=== PATIENT | male | born 1945 | race Caucasian/White ===

== ENCOUNTER 2018-12-17 20:57 | Observation (INO) ==
[2018-12-17] MEDS ORDERED: 0.9 % Sodium Chloride 1,000 ML IVC ONE (21:34)
--- NOTE | 2018-12-17 21:50 | Emergency Department Note ---
Disposition Clinical Impression: Alcohol use Syncope Qualifiers: Syncope type: unspecified Qualified Code(s): R55 - Syncope and collapse Hypothermia Qualifiers: Encounter type: initial encounter Qualified Code(s): T68.XXXA - Hypothermia, initial encounter Disposition: Admitted As Inpatient Condition: Fair Referrals: NONE,PCP [Primary Care Provider] - Forms: ED Satisfaction Letter Time of Disposition: 00:49 General Adult HPI - General Chief complaint: ED Nausea/Vomiting/Diarrhea Stated complaint: Vomiting Time Seen by Provider: 12/17/18 21:08 Source: EMS Limitations: no limitations Nursing Notes Reviewed: Yes Vital Signs Reviewed: Yes - History of Present Illness HPI Narrative: 73-year-old male presents from home with family bedside for evaluation of vomiting. Patient felt perfectly fine yesterday and this morning. He went out and drank alcohol, unknown quantity. He came home and sat down. states he went ashen, eyes rolled back of his head, and he passed out briefly. When he came to there was no post ictal period and he vomited 1, nonbloody, nonbilious. also notes he had a lesion excised from the right ma by dermatology which was subsequently found to be a type of skin cancer PMH: Hypertension, hyperlipidemia. No history of CAD, ACS, diabetes, thyroid disease. No preceding illness. Habits: THC smoking. Current everyday EtOH; 3 beers per day. He has never been without EtOH thus has never experienced withdrawl symptoms. ROS: Positive: As above Negative: Trauma, fever, chills, nausea, chest pain, palpitations, dyspnea, diaphoresis, abdominal pain, diarrhea, constipation, Pain Scale: 0 - Related Data Home Medications Medication Instructions Recorded Confirmed Baclofen [Lioresal] 10 mg PO BID 08/17/16 02/08/17 Ciclopirox Olamine [Ciclopirox] 1 appl TP BID 08/17/16 02/08/17 Desonide [Desowen] 1 appl TP BID 08/17/16 02/08/17 Gabapentin [Neurontin] 800 mg PO HS 08/17/16 02/08/17 Losartan Potassium [Cozaar] 50 mg PO DAILY 08/17/16 02/08/17 Meloxicam 15 mg PO DAILY 08/17/16 02/08/17 Pantoprazole Sodium [Protonix] 40 mg PO DAILY 08/17/16 02/08/17 Simvastatin [Zocor] 40 mg PO HS 08/17/16 02/08/17 Triamcinolone Acet 0.1% OINT 1 appl TP BID 08/17/16 02/08/17 [Kenalog] Previous Rx's Medication Instructions Recorded HYDROcodone/Acet 5/325 mg [[place] 1 tab PO Q4H PRN #15 tab 02/08/17 5-325 mg] Phenazopyridine HCl [Pyridium] 200 mg PO TIDAC PRN #30 tab 02/08/17 predniSONE [PredniSONE] 80 mg PO DAILY #28 tablet 11/12/17 Allergies Allergy/AdvReac Type Severity Reaction Status Date / Time No Known Allergies Allergy Verified 11/12/17 19:59 All systems ED: reviewed and negative except as stated. Review of Systems: As Per HPI Past Medical History - Past Medical History Medical history: Reports: GERD, hyperlipidemia, hypertension Psychiatric history: Reports: no psych history - Social History Smoking Status: Never smoker Smokeless Tobacco Status: No Alcohol use: Reports: heavy Drug use: Reports: marijuana Physical Exam Vital Signs Reviewed General: Patient is alert, oriented, and in no acute distress. Head: atraumatic, normocephalic Eye: normal appearance, PERRL, EOMI, no scleral icterus, no conjunctival injection ENT: mucous membranes moist, normal external ear exam Neck: normal inspection, trachea midline, full ROM Chest: normal inspection, symmetric chest rise Respiratory: Good respiratory effort. Bilateral breath sounds are clear without wheezing, crackles, or rhonchi. Cardiovascular: Regular rate and rhythm. No clicks, rubs, gallops, or murmors. Normal heart sounds. Abdomen: Bowel sounds present normoactive. Abdomen is soft, nondistended, and nontender. No guarding or rebound. No organomegaly noted. Musculoskeletal: Spontaneously moving all extremities. Skin: warm, dry. Shallow lesion on right anterior ma which is well-appearing with no erythema, saline as, purulence. Neuro: GCS 15. No focal neurologic deficits observed. Psych: Patient's affect is appropriate for situation. - General Limitations: no limitations General appearance: alert Course Course Narrative: Patient is hypothermic on intake with both oral and rectal temperatures. Concern for possible infectious etiology. Also concern given his syncope which could have been vagal mediated given his emesis. EKG dated 12/17/2018 at 21:20 interpreted as sinus rhythm with rate of 61. [place] 175, QRS 136, QTC 473. Normal axis. Right bundle branch block. Nonspecific ST-T changes. Compared to previous EKG dated 02/10/2017 showing no acute ischemic changes or comparison. CT head unremarkable per cardiology read. Chest x-ray is unremarkable per radiology read. Serum hematology is unremarkable. Serum chemistries unremarkable. EtOH elevated at 150s. Patient's hypothermia improved after 3 hours under the per hugger; he is now 97.5F oral. I discussed the above the patient and family. My clinical concern is his syncope as well as his hypothermia. I do not have an expiration for either at this time. Patient and family are agreeable to admission for continued evaluation and monitoring. I discussed the above with the admitting hospitalist, Dr. Fu. He agrees to accept the patient for syncope workup. We also discussed the patient's hypothermia. Chest X-Ray 12/17/18 21:33 IMPRESSION: No acute cardiopulmonary process. D/ / Jesús Perry / Jesús Perry Interpreting Provider: Jesús Sessions Head CT 12/17/18 21:33 IMPRESSION: No acute intracranial abnormality. D/ / Jose Hernandez MD / Jose Hernandez MD Interpreting Provider: Jose Hernandez MD Vital Signs Temperature 94.5 F L 12/17/18 21:02 Pulse Rate 60 12/17/18 21:02 Respiratory Rate 15 12/17/18 21:02 Blood Pressure 121/68 12/17/18 21:02 O2 Sat by Pulse Oximetry 100 12/17/18 21:02 Temperature 97.8 F 12/18/18 00:25 Pulse Rate 73 12/18/18 00:25 Respiratory Rate 11 12/18/18 00:25 Blood Pressure 129/65 12/18/18 00:25 O2 Sat by Pulse Oximetry 96 12/18/18 00:25 Oxygen Delivery Oxygen Delivery Room Air Medical Decision Making - Lab Data Result diagrams: 12/17/18 21:59 12/17/18 21:59 Lab Results 0312/17/18 12/17/18 Range/Units 21:38 21:59 21:59 WBC 6.6 (4.3-11.1) K/mcL RBC 4.73 (4.19-5.50) M/mcL Hgb 13.9 (12.9-16.9) g/dL Hct 42.2 (37.5-50.1) % MCV 89.2 (83.0-100.0) fL MCH 29.4 (28.0-33.3) pg MCHC 32.9 (31.6-35.5) g/dL RDW 12.7 (11.5-14.5) % Plt Count 179 (140-400) K/mcL MPV 10.6 (9.4-12.4) fL Immature Gran % 0.3 (0-4) % Seg Neutrophils % 69.5 % Lymphocytes % 19.4 % Monocytes % 7.6 % Eosinophils % 2.7 % Basophils % 0.5 % Neutrophils # 4.6 (1.6-8.9) K/mcL Lymphocytes # 1.3 (0.6-4.6) K/mcL Monocytes # 0.5 (0.0-1.3) K/mcL Eosinophils # 0.2 (0.0-0.6) K/mcL Basophils # 0.0 (0.0-0.2) K/mcL PT 10.4 (9.4-12.1) Seconds INR 0.9 APTT 24.3 L (26.0-36.0) Seconds Sodium (136-145) mEq/L Potassium (3.5-5.1) mEq/L Chloride (98-107) mEq/L Carbon Dioxide (23-29) mEq/L BUN (8-23) mg/dL Creatinine (0.70-1.30) mg/dL Est GFR ( Amer) (> 60) Est GFR (Non-Af Amer) (> 60) BUN/Creatinine Ratio (6-26) Glucose (70-105) mg/dL POC Glucose 132 H (70-99) mg/dL Calculated Osmolality (280-300) Lactic Acid (0.5-2.2) mmol/L Calcium (8.6-10.3) mg/dL Magnesium (1.6-2.6) mg/dL Total Bilirubin (0.3-1.0) mg/dL Direct Bilirubin (0.0-0.2) mg/dL Indirect Bilirubin (0.0-1.2) mg/dL AST (13-39) Units/L ALT (7-52) Units/L Alkaline Phosphatase (34-104) Units/L Troponin I (< 0.04) ng/mL Serum Total Protein (6.4-8.9) g/dL Albumin (3.5-5.7) g/dL Globulin (2.4-3.5) g/dL Albumin/Globulin Ratio (1.1-2.2) Salicylates (15.0-30.0) mg/dL Acetaminophen (10-20) mcg/mL Ethyl Alcohol (Less than 10) mg/dL 12/17/18 12/17/18 12/17/18 Range/Units 21:59 21:59 22:09 WBC (4.3-11.1) K/mcL RBC (4.19-5.50) M/mcL Hgb (12.9-16.9) g/dL Hct (37.5-50.1) % MCV (83.0-100.0) fL MCH (28.0-33.3) pg MCHC (31.6-35.5) g/dL RDW (11.5-14.5) % Plt Count (140-400) K/mcL MPV (9.4-12.4) fL Immature Gran % (0-4) % Seg Neutrophils % % Lymphocytes % % Monocytes % % Eosinophils % % Basophils % % Neutrophils # (1.6-8.9) K/mcL Lymphocytes # (0.6-4.6) K/mcL Monocytes # (0.0-1.3) K/mcL Eosinophils # (0.0-0.6) K/mcL Basophils # (0.0-0.2) K/mcL PT (9.4-12.1) Seconds INR APTT (26.0-36.0) Seconds Sodium 139 (136-145) mEq/L Potassium 4.0 (3.5-5.1) mEq/L Chloride 106 (98-107) mEq/L Carbon Dioxide 25 (23-29) mEq/L BUN 13 (8-23) mg/dL Creatinine 1.07 (0.70-1.30) mg/dL Est GFR ( Amer) > 60 (> 60) Est GFR (Non-Af Amer) > 60 (> 60) BUN/Creatinine Ratio 12 (6-26) Glucose 155 H (70-105) mg/dL POC Glucose (70-99) mg/dL Calculated Osmolality 291 (280-300) Lactic Acid 2.5 H (0.5-2.2) mmol/L Calcium 9.3 (8.6-10.3) mg/dL Magnesium 2.3 (1.6-2.6) mg/dL Total Bilirubin 0.6 (0.3-1.0) mg/dL Direct Bilirubin 0.1 (0.0-0.2) mg/dL Indirect Bilirubin 0.5 (0.0-1.2) mg/dL AST 15 (13-39) Units/L ALT 15 (7-52) Units/L Alkaline Phosphatase 64 (34-104) Units/L Troponin I < 0.03 (< 0.04) ng/mL Serum Total Protein 6.9 (6.4-8.9) g/dL Albumin 4.5 (3.5-5.7) g/dL Globulin 2.4 (2.4-3.5) g/dL Albumin/Globulin Ratio 1.9 (1.1-2.2) Salicylates < 2.5 L (15.0-30.0) mg/dL Acetaminophen < 10 L (10-20) mcg/mL Ethyl Alcohol 153 H (Less than 10) mg/dL
[2018-12-17 22:17] LABS: Basophils % 0.5 %; Eosinophils # 0.2 K/mcL (0.0-0.6); Eosinophils % 2.7 %; Hematocrit 42.2 % (37.5-50.1); Hemoglobin 13.9 g/dL (12.9-16.9); Immature Granulocytes % 0.3 % (0-4); Lymphocytes # 1.3 K/mcL (0.6-4.6); Lymphocytes % 19.4 %; Mean Corpuscular HGB Conc 32.9 g/dL (31.6-35.5); Mean Corpuscular Hemoglobin 29.4 pg (28.0-33.3); Mean Corpuscular Volume 89.2 fL (83.0-100.0); Mean Platelet Volume 10.6 fL (9.4-12.4); Monocytes # 0.5 K/mcL (0.0-1.3); Monocytes % 7.6 %; Neutrophils # 4.6 K/mcL (1.6-8.9); Platelet Count 179 K/mcL (140-400); Red Blood Count 4.73 M/mcL (4.19-5.50); Red Cell Distribution Width 12.7 % (11.5-14.5); Segmented Neutrophils % 69.5 %
[2018-12-17 22:32] LABS: Acetaminophen < 10 mcg/mL (10-20); Ethanol 153 mg/dL (Less than 10); Salicylate < 2.5 mg/dL (15.0-30.0)
[2018-12-17 22:35] LABS: Alanine Aminotransferase 15 Units/L (7-52); Albumin 4.5 g/dL (3.5-5.7); Albumin/Globulin Ratio 1.9 (1.1-2.2); Alkaline Phosphatase 64 Units/L (34-104); Aspartate Amino Transferase 15 Units/L (13-39); BUN/Creatinine Ratio 12 (6-26); Bilirubin,Direct 0.1 mg/dL (0.0-0.2); Bilirubin,Indirect 0.5 mg/dL (0.0-1.2); Bilirubin,Total 0.6 mg/dL (0.3-1.0); Blood Urea Nitrogen 13 mg/dL (8-23); Calcium 9.3 mg/dL (8.6-10.3); Carbon Dioxide 25 mEq/L (23-29); Chloride 106 mEq/L (98-107); Globulin 2.4 g/dL (2.4-3.5); Glucose 155 mg/dL (70-105); Magnesium 2.3 mg/dL (1.6-2.6); Osmolality,Calculated 291 (280-300); Sodium 139 mEq/L (136-145); Total Protein 6.9 g/dL (6.4-8.9); Troponin I < 0.03 ng/mL (< 0.04); eGFR For Non-African Americans > 60 (> 60)
[2018-12-17 22:39] LABS: INR 0.9; Prothrombin Time 10.4 Seconds (9.4-12.1)
--- NOTE | 2018-12-17 22:44 | Emergency Department Note ---
Disposition Clinical Impression: Alcohol use Syncope Qualifiers: Syncope type: unspecified Qualified Code(s): R55 - Syncope and collapse Hypothermia Qualifiers: Encounter type: initial encounter Qualified Code(s): T68.XXXA - Hypothermia, initial encounter Disposition: Admitted As Inpatient Condition: Fair Referrals: NONE,PCP [Primary Care Provider] - Forms: ED Satisfaction Letter General Adult HPI - General Chief complaint: ED Nausea/Vomiting/Diarrhea Stated complaint: Vomiting Time Seen by Provider: 12/17/18 21:08 Source: EMS Limitations: no limitations Nursing Notes Reviewed: Yes Vital Signs Reviewed: Yes - History of Present Illness Pain Scale: 0 - Related Data Home Medications Medication Instructions Recorded Confirmed Baclofen [Lioresal] 10 mg PO BID 08/17/16 02/08/17 Ciclopirox Olamine [Ciclopirox] 1 appl TP BID 08/17/16 02/08/17 Desonide [Desowen] 1 appl TP BID 08/17/16 02/08/17 Gabapentin [Neurontin] 800 mg PO HS 08/17/16 02/08/17 Losartan Potassium [Cozaar] 50 mg PO DAILY 08/17/16 02/08/17 Meloxicam 15 mg PO DAILY 08/17/16 02/08/17 Pantoprazole Sodium [Protonix] 40 mg PO DAILY 08/17/16 02/08/17 Simvastatin [Zocor] 40 mg PO HS 08/17/16 02/08/17 Triamcinolone Acet 0.1% OINT 1 appl TP BID 08/17/16 02/08/17 [Kenalog] Previous Rx's Medication Instructions Recorded HYDROcodone/Acet 5/325 mg [[place] 1 tab PO Q4H PRN #15 tab 02/08/17 5-325 mg] Phenazopyridine HCl [Pyridium] 200 mg PO TIDAC PRN #30 tab 02/08/17 predniSONE [PredniSONE] 80 mg PO DAILY #28 tablet 11/12/17 Allergies Allergy/AdvReac Type Severity Reaction Status Date / Time No Known Allergies Allergy Verified 11/12/17 19:59 Past Medical History - Past Medical History Medical history: Reports: GERD, hyperlipidemia, hypertension Psychiatric history: Reports: no psych history - Social History Smoking Status: Never smoker Smokeless Tobacco Status: No Alcohol use: Reports: heavy Drug use: Reports: marijuana Physical Exam - General Limitations: no limitations General appearance: alert Course Vital Signs Temperature 94.5 F L 12/17/18 21:02 Pulse Rate 60 12/17/18 21:02 Respiratory Rate 15 12/17/18 21:02 Blood Pressure 121/68 12/17/18 21:02 O2 Sat by Pulse Oximetry 100 12/17/18 21:02 Temperature 97.8 F 12/18/18 00:25 Pulse Rate 73 12/18/18 00:25 Respiratory Rate 11 12/18/18 00:25 Blood Pressure 129/65 12/18/18 00:25 O2 Sat by Pulse Oximetry 96 12/18/18 00:25 Oxygen Delivery Oxygen Delivery Room Air Medical Decision Making - Medical Records Medical records reviewed: Yes I reviewed the patient's medical records. - Lab Data Lab results reviewed: Yes I reviewed the patient's lab results. Result diagrams: 12/17/18 21:59 12/17/18 21:59 Lab Results 12/17/18 12/17/18 12/17/18 Range/Units 21:38 21:59 21:59 WBC 6.6 (4.3-11.1) K/mcL RBC 4.73 (4.19-5.50) M/mcL Hgb 13.9 (12.9-16.9) g/dL Hct 42.2 (37.5-50.1) % MCV 89.2 (83.0-100.0) fL MCH 29.4 (28.0-33.3) pg MCHC 32.9 (31.6-35.5) g/dL RDW 12.7 (11.5-14.5) % Plt Count 179 (140-400) K/mcL MPV 10.6 (9.4-12.4) fL Immature Gran % 0.3 (0-4) % Seg Neutrophils % 69.5 % Lymphocytes % 19.4 % Monocytes % 7.6 % Eosinophils % 2.7 % Basophils % 0.5 % Neutrophils # 4.6 (1.6-8.9) K/mcL Lymphocytes # 1.3 (0.6-4.6) K/mcL Monocytes # 0.5 (0.0-1.3) K/mcL Eosinophils # 0.2 (0.0-0.6) K/mcL Basophils # 0.0 (0.0-0.2) K/mcL PT 10.4 (9.4-12.1) Seconds INR 0.9 APTT 24.3 L (26.0-36.0) Seconds Sodium (136-145) mEq/L Potassium (3.5-5.1) mEq/L Chloride (98-107) mEq/L Carbon Dioxide (23-29) mEq/L BUN (8-23) mg/dL Creatinine (0.70-1.30) mg/dL Est GFR ( Amer) (> 60) Est GFR (Non-Af Amer) (> 60) BUN/Creatinine Ratio (6-26) Glucose (70-105) mg/dL POC Glucose 132 H (70-99) mg/dL Calculated Osmolality (280-300) Lactic Acid (0.5-2.2) mmol/L Calcium (8.6-10.3) mg/dL Magnesium (1.6-2.6) mg/dL Total Bilirubin (0.3-1.0) mg/dL Direct Bilirubin (0.0-0.2) mg/dL Indirect Bilirubin (0.0-1.2) mg/dL AST (13-39) Units/L ALT (7-52) Units/L Alkaline Phosphatase (34-104) Units/L Troponin I (< 0.04) ng/mL Serum Total Protein (6.4-8.9) g/dL Albumin (3.5-5.7) g/dL Globulin (2.4-3.5) g/dL Albumin/Globulin Ratio (1.1-2.2) Salicylates (15.0-30.0) mg/dL Acetaminophen (10-20) mcg/mL Ethyl Alcohol (Less than 10) mg/dL 12/17/18 12/17/18 12/17/18 Range/Units 21:59 21:59 22:09 WBC (4.3-11.1) K/mcL RBC (4.19-5.50) M/mcL Hgb (12.9-16.9) g/dL Hct (37.5-50.1) % MCV (83.0-100.0) fL MCH (28.0-33.3) pg MCHC (31.6-35.5) g/dL RDW (11.5-14.5) % Plt Count (140-400) K/mcL MPV (9.4-12.4) fL Immature Gran % (0-4) % Seg Neutrophils % % Lymphocytes % % Monocytes % % Eosinophils % % Basophils % % Neutrophils # (1.6-8.9) K/mcL Lymphocytes # (0.6-4.6) K/mcL Monocytes # (0.0-1.3) K/mcL Eosinophils # (0.0-0.6) K/mcL Basophils # (0.0-0.2) K/mcL PT (9.4-12.1) Seconds INR APTT (26.0-36.0) Seconds Sodium 139 (136-145) mEq/L Potassium 4.0 (3.5-5.1) mEq/L Chloride 106 (98-107) mEq/L Carbon Dioxide 25 (23-29) mEq/L BUN 13 (8-23) mg/dL Creatinine 1.07 (0.70-1.30) mg/dL Est GFR ( Amer) > 60 (> 60) Est GFR (Non-Af Amer) > 60 (> 60) BUN/Creatinine Ratio 12 (6-26) Glucose 155 H (70-105) mg/dL POC Glucose (70-99) mg/dL Calculated Osmolality 291 (280-300) Lactic Acid 2.5 H (0.5-2.2) mmol/L Calcium 9.3 (8.6-10.3) mg/dL Magnesium 2.3 (1.6-2.6) mg/dL Total Bilirubin 0.6 (0.3-1.0) mg/dL Direct Bilirubin 0.1 (0.0-0.2) mg/dL Indirect Bilirubin 0.5 (0.0-1.2) mg/dL AST 15 (13-39) Units/L ALT 15 (7-52) Units/L Alkaline Phosphatase 64 (34-104) Units/L Troponin I < 0.03 (< 0.04) ng/mL Serum Total Protein 6.9 (6.4-8.9) g/dL Albumin 4.5 (3.5-5.7) g/dL Globulin 2.4 (2.4-3.5) g/dL Albumin/Globulin Ratio 1.9 (1.1-2.2) Salicylates < 2.5 L (15.0-30.0) mg/dL Acetaminophen < 10 L (10-20) mcg/mL Ethyl Alcohol 153 H (Less than 10) mg/dL - Radiology Data Radiology results reviewed: Yes I reviewed the patient's radiology results. Chest X-Ray 12/17/18 21:33 IMPRESSION: No acute cardiopulmonary process. D/ / Jesús Sessions / Jesús Sessions Interpreting Provider: Jesús Sessions Head CT 12/17/18 21:33 IMPRESSION: No acute intracranial abnormality. D/ / Jose Hernandez MD / Jose Hernandez MD Interpreting Provider: Jose Hernandez MD - EKG Data EKG #1 EKG attestation: Yes I reviewed and interpreted this EKG. EKG results narrative: EKG shows normal sinus rhythm with ventricular rate of 61. Right bundle branch block. No significant ST segment elevation or depression. No ectopy. Attestation Statement - Attestation Attestation: I, Mohit Stallworth MD, personally evaluated this patient and discussed their management with the resident physician. I reviewed the resident's note and agree with the documented findings, medical decision making, and plan of care. 73-year-old male presents to the emergency department with a complaint that he drank some alcohol this evening. Family reports then he became very pale and ashen. He vomited and then passed out. He did not get diaphoretic. He did have some mild twitching and jerking briefly. When he woke up after passing out there was no postictal symptoms. Here in the emergency Department patient has no complaints. He denies any pain anywhere. He denies shortness of breath. He denies nausea. Patient was noted to be hypothermic with a rectal temperature of 94.5. The emergency department. On examination patient is a well-developed well-nourished elderly male in no acute distress. He is alert and oriented 3. There is no cyanosis or diaphoresis. Breath sounds are clear and equal bilaterally. Heart regular rate and rhythm. Abdomen soft and nontender with normal bowel sounds. No pedal edema. Labs reviewed. Chest x-ray negative. Head CT negative. EKG shows normal sinus rhythm with ventricular rate of 61. Right bundle branch block. No significant ST segment elevation or depression. No ectopy. The hospitalist, Dr. Albright, was consulted and accepted admission of the patient.
[2018-12-17 23:36] LABS: Activated Partial Thrombo Time 24.3 Seconds (26.0-36.0)
[2018-12-18] MEDS ORDERED: Naloxone 0.4 MG/ML INJ IVP PRN (02:43)
[2018-12-18] MEDS ORDERED: Cyanocobalamin (B-12) 1,000 MCG/ML VIAL IM SCH (02:45)
[2018-12-18] MEDS ORDERED: DESONIDE APPL TP PRN (02:45)
[2018-12-18] MEDS ORDERED: Clotrimazole 1% CRM 15 GM TUBE TP PRN (02:45)
[2018-12-18 04:25] LABS: Basophils % 0.5 %; Eosinophils % 0.7 %; Hematocrit 37.8 % (37.5-50.1); Hemoglobin 12.5 g/dL (12.9-16.9); Immature Granulocytes % 0.3 % (0-4); Lymphocytes # 1.2 K/mcL (0.6-4.6); Lymphocytes % 19.3 %; Mean Corpuscular HGB Conc 33.1 g/dL (31.6-35.5); Mean Corpuscular Hemoglobin 29.5 pg (28.0-33.3); Mean Corpuscular Volume 89.2 fL (83.0-100.0); Mean Platelet Volume 11.6 fL (9.4-12.4); Monocytes # 0.3 K/mcL (0.0-1.3); Monocytes % 5.4 %; Neutrophils # 4.4 K/mcL (1.6-8.9); Platelet Count 155 K/mcL (140-400); Red Blood Count 4.24 M/mcL (4.19-5.50); Red Cell Distribution Width 12.8 % (11.5-14.5); Segmented Neutrophils % 73.8 %
[2018-12-18 04:30] LABS: Prothrombin Time 11.6 Seconds (9.4-12.1)
[2018-12-18 04:33] LABS: Activated Partial Thrombo Time 24.8 Seconds (26.0-36.0)
[2018-12-18 04:41] LABS: Alanine Aminotransferase 12 Units/L (7-52); Albumin 3.8 g/dL (3.5-5.7); Albumin/Globulin Ratio 1.7 (1.1-2.2); Alkaline Phosphatase 57 Units/L (34-104); Aspartate Amino Transferase 12 Units/L (13-39); BUN/Creatinine Ratio 14 (6-26); Bilirubin,Total 0.5 mg/dL (0.3-1.0); Blood Urea Nitrogen 12 mg/dL (8-23); Calcium 8.8 mg/dL (8.6-10.3); Carbon Dioxide 24 mEq/L (23-29); Chloride 108 mEq/L (98-107); Globulin 2.2 g/dL (2.4-3.5); Glucose 107 mg/dL (70-105); Osmolality,Calculated 292 (280-300); Sodium 141 mEq/L (136-145); Troponin I < 0.03 ng/mL (< 0.04); eGFR For Non-African Americans > 60 (> 60)
--- NOTE | 2018-12-18 06:07 | Internal Med History&Physical ---
Date of Encounter: 12/18/18 Time of Encounter: 06:04 Internal Medicine - H&P: HPI Chief complaint: Near syncope History of present illness: Mr. Howard is a 73 year old male with a past medical history of hyperlipidemia, hypertension, chronic back pain and GERD who presented to the ED after a near syncopal episode witnessed by the patient's . Patient reportedly had a few drinks tonight, was sitting in his living with his and brother. reports that his brother was asking him a questions when all of a sudden he became incoheren. Patient turned somewhat pritchett in color, his eyes rolled back into his head and it appeared as if he was going to pass out, and subsequently vomited. No reports of any postictal confusion, loss of bowel or bladder control. Patient denied any presyncopal symptoms of diaphoresis, nausea, palpitations, chest pain or shortness of breath. No reports of focal deficits. On arrival patient was noted to be hypothermic with a temperature of 94.5. He was placed on a bear hugger with improvement and 97.5. Review of his vitals were otherwise stable. Laboratory workup was relatively unremarkable. Chest x- ray and head CT were also unremarkable. EKG showed sinus rhythm with a right bundle branch block and no ischemic changes. Patient received 1 L of fluids in the ED. On my assessment patient appears to be back to his baseline. 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, prostate, cataract surgery LEFT eye - Social History Smoking Status: Never smoker Smokeless Tobacco Status: No Alcohol use: heavy Drug use: marijuana Internal Medicine - H&P: Meds Baclofen [Lioresal] 10 mg PO BID 08/17/16 [History] Ciclopirox Olamine [Ciclopirox] 1 appl TP BID PRN 08/17/16 [History] Desonide [Desowen] 1 appl TP BID PRN 08/17/16 [History] Gabapentin [Neurontin] 800 mg PO BID 08/17/16 [History] Losartan Potassium [Cozaar] 50 mg PO DAILY 08/17/16 [History] Meloxicam 15 mg PO DAILY 08/17/16 [History] Pantoprazole Sodium [Protonix] 40 mg PO DAILY 08/17/16 [History] Simvastatin [Zocor] 40 mg PO HS 08/17/16 [History] Cyanocobalamin (B-12) [Vitamin B12] 1,000 mcg IM QMONTH 12/18/18 [History] Tamsulosin HCl [Flomax] 0.4 mg PO DAILY 12/18/18 [History] Allergy/AdvReac Type Severity Reaction Status Date / Time No Known Allergies Allergy Verified 11/12/17 19:59 All Systems PM: A 10-system review of systems was performed and is negative for pertinent findings except as documented above in the HPI. - Constitutional Constitutional: no chills, no fever(s), no night sweats - EENT Eyes: no change in vision, no discharge, no pain, no photophobia Ears: no ear discharge, no ear pain, no tinnitus Nose, mouth and throat: no dysphagia, no nasal discharge, no neck pain, no sore throat - Cardiovascular Cardiovascular ROS IM: no chest pain, no diaphoresis, no dyspnea, no lightheadedness, no palpitations, no syncope - Respiratory Respiratory: no cough, no dyspnea, no wheezing, no excessive phlegm production - Gastrointestinal Gastrointestinal: no abdominal pain, no diarrhea, no hematemesis, no hematochezia, no melena, no nausea, no vomiting - Musculoskeletal Musculoskeletal ROS IM: no numbness, no tingling - Integumentary Integumentary IM: no rash, no unusual bruising - Neurological Neurological ROS: no confusion, no convulsions, no focal weakness, no numbness, no tingling, no tremor(s) - Hematologic/Lymphatic Hematologic/Lymphatic: no easy bruising - Constitutional Vitals: Temp Pulse Resp BP Pulse Ox 98.7 F 70 16 125/69 94 12/18/18 04:58 12/18/18 04:58 12/18/18 04:58 12/18/18 04:58 12/18/18 04:58 Exam: General: Alert and oriented 3 lying in bed in no acute distress Skin:Normal color, no rash, no lesions. HEENT:EOM, pupils equal, round and reactive. Cardiovascular:Normal S1 & S2, no rubs, murmurs or gallops. No JVD. Pulse regular. Lungs:Normal breath sounds, no wheezes or crackles. Abdomen:Soft, non-tender, no rigidity. Extremities:No deformity, no edema or tenderness, no joint swelling or clubbing. Neurological:Normal cognition and motor skills. Radial nerves II through XII intact. Muscle strength in the upper and lower extremities 5 out of 5 bilaterally. Sensation intact. Pulses:Carotid and radial pulses normal +2. Rest of the physical exam is non contributory Internal Med - H&P Results - Labs CBC & Chem 7: 12/18/18 03:57 12/18/18 03:57 Labs: Short CBC 12/17/18 12/18/18 Range/Units 21:59 03:57 WBC 6.6 6.0 (4.3-11.1) K/mcL Hgb 13.9 12.5 L (12.9-16.9) g/dL Hct 42.2 37.8 (37.5-50.1) % Plt Count 179 155 (140-400) K/mcL Neutrophils # 4.6 4.4 (1.6-8.9) K/mcL BMP 12/17/18 12/18/18 21:59 03:57 Sodium 139 141 Potassium 4.0 4.0 Chloride 106 108 H Carbon Dioxide 25 24 BUN 13 12 Creatinine 1.07 0.88 Glucose 155 H 107 H Calcium 9.3 8.8 Cardiac Enzymes 12/17/18 12/18/18 Range/Units 21:59 03:57 Troponin I < 0.03 < 0.03 (< 0.04) ng/mL Liver Function 12/17/18 12/18/18 Range/Units 21:59 03:57 Total Bilirubin 0.6 0.5 (0.3-1.0) mg/dL Direct Bilirubin 0.1 (0.0-0.2) mg/dL AST 15 12 L (13-39) Units/L ALT 15 12 (7-52) Units/L Alkaline Phosphatase 64 57 (34-104) Units/L Albumin 4.5 3.8 (3.5-5.7) g/dL - Impressions ITS Impressions Chest X-Ray 12/17/18 21:33 IMPRESSION: No acute cardiopulmonary process. D/ / Jesús Sessions / Jesús Sessions Interpreting Provider: Jesús Sessions Head CT 12/17/18 21:33 IMPRESSION: No acute intracranial abnormality. D/ / Jose Hernandez MD / Jose Hernandez MD Interpreting Provider: Jose Hernandez MD - Assessment and Plan (1) Near syncope Current Visit: Yes Status: Acute Assessment and plan: Near syncopal episode associated with change in skin color. No evidence of postictal confusion or focal deficits. Patient had been drinking but was not reportedly intoxicated. -Telemetry -Urine toxicology -Blood cultures -Echocardiogram/bilateral carotid duplex -MRI of the brain (2) Hypothermia Current Visit: Yes Status: Acute Assessment and plan: Hypothermia of 94 degrees of unclear etiology. No evidence of infectious etiology. Temperature has improved to 97 after warming. Patient back to baseline -Follow-up blood cultures -Monitor Qualifiers: Encounter type: initial encounter Qualified Code(s): T68.XXXA - Hypothermia, initial encounter (3) Alcohol use Current Visit: Yes Status: Acute Assessment and plan: Patient reports he has drinks about 4 beers a day. -On it or signs of which are all (4) DVT prophylaxis Current Visit: Yes Status: Acute - Time Spent With Patient Total time spent is greater than 50% in coordination of care (as documented) at patient's floor/unit and/or counseling patient:
[2018-12-18] MEDS: *HR* Heparin 5,000 UNIT/ML VIAL SQ SCH ×3 (07:50→21:53)
[2018-12-18 07:59] LABS: Bilirubin,Urine Negative (Negative); Blood,Urine Negative (Negative); Clarity,Urine Clear (Clear); Color,Urine Yellow (Yellow); Glucose,Urine (UA) Normal (Normal); Ketones,Urine Negative (Negative); Leukocyte Esterase,Urine Negative (Negative); Nitrite,Urine Negative (Negative); PH,Urine 5.5 pH Units (5.0-8.0); Protein,Urine Negative (Neg-Trace); Specific Gravity,Urine 1.017 (1.010-1.025); Urobilinogen,Urine Normal (Normal)
[2018-12-18 08:24] LABS: Amphetamine Screen,Urine Negative ng/mL (Cutoff=1000); Barbiturate Screen,Urine Negative ng/mL (Cutoff=200); Benzodiazepines Screen,Urine Negative ng/mL (Cutoff=200); Cannabinoid Screen,Urine Positive ng/mL (Cutoff = 50); Cocaine Screen,Urine Negative ng/mL (Cutoff= 300); Opiate Screen,Urine Negative ng/mL (Cutoff=300); Phencyclidine Screen,Urine Negative ng/mL (Cutoff=25)
[2018-12-18] MEDS ORDERED: *HR* LORazepam 2 MG/ML VIAL IVP PRN ×3 (08:43)
--- NOTE | 2018-12-18 08:45 | Internal Med Progress Note ---
<Dusty Jorge C - Last Filed: 12/18/18 15:04> Hospitalist Progress Note - Encounter Date of Encounter: 12/18/18 Time of Encounter: 13:00 - Subjective Interval History: Mr. Howard is a 73 year old male with a PMHx of hyperlipidemia, hypertension, chronic back pain and GERD who presented to the ED after a near syncopal episode witnessed by the patient's . Pt reports he had few beers, sitting when suddenly became pale and incoherent for a few minutes. Pt had episode of vomiting just prior to symptom onset. Patient was seen at bedside. He was resting comfortably in the chair next to his bed. was present and provided additional hx. He admits to only one similar episode last summer while socializing with outside beside a campfire at this time the patient used marijuana, alcohol and balcofen, at that time. states he had seizure like activity and was using marijuana while his brother was in town. Current episode had some signs of confusion following syncopal like event. He states he was confused most of ED transit and course. Patient currently denies any similar symptoms since his admission. He denies fevers, chills, chest pain, palpitations, SOB cough or wheezing. He denies any nausea or any other vomiting other than initial presentation. He is not c/o numbness or tingling, blood in urine or stool. - Exam Vitals: Temp Pulse Resp BP Pulse Ox 98.7 F 70 16 125/69 94 12/18/18 04:58 12/18/18 04:58 12/18/18 04:58 12/18/18 04:58 12/18/18 04:58 Exam: General: A&O 3 sitting in chair, not in any acute distress. Skin: Warm and dry, no rashes on exposed skin surfaces. HEENT: Pupils equal, round and reactive to light. Cardiovascular:Normal S1 & S2, no murmurs appreciated. No JVD. Lungs: Clear to auscultation posteriorly, no wheezes or crackles. Abdomen:Soft, non-tender to palpation, no rigidity, BSx4. Extremities:No deformity, no lower extremity edema or calf tenderness, no joint swelling or clubbing. Neurological: CN II-XII grossly intact, normal cognition and motor skills. Strength is 5/5 of the upper and lower extremities bilaterally. Sensation to light touch intact. Pulses:Carotid and radial pulses normal +2 - Assessment and Plan (1) Near syncope Current Visit: Yes Status: Acute Assessment and Plan: Whitenessed near syncopal episode that was associated with change in skin color. Transient unarousable state that lasted 1-2minuts. No evidence of postictal confusion or focal deficits. Patient had been drinking but was not reportedly intoxicated. -Consult neurology due to post ictal symptoms and reported seizure like activity Possible EEG -Telemetry shows no acute events -Urine toxicology only positive for U Marijuana (THC) -Blood cultures pending will continue to monitor -Echocardiogram/bilateral carotid duplex Echo: LVEF 60-65%. Nl wall thickness and sys. function. No significant valvular dysfunction. Carotid duplex: pending -MRI of the brain Revealed mild chronic small vessel ischemia, cerebral atrophy. Findings not congruent with acute infarct. (2) Hypothermia Current Visit: Yes Status: Resolved Assessment and Plan: Initial presentation with /hypothermia of 94 degrees of unclear etiology. No obvious source of infectious etiology. Temperature has improved with warming and now stable at 98.7. -Follow-up blood cultures to r/out infectious source -Chest Xray revealed stable chest. -Monitor vitals. (3) Alcohol use Current Visit: Yes Status: Acute Assessment and Plan: Patient admits to regular 3-4 beers daily. -Currently vitals are stable and pt. A&O x3. Will continue to monitor for signs of withdrawal. -Educated patient on signs of withdrawal and importance of decreasing alcohol intake. (4) Transient ischemic attack (TIA) Current Visit: Yes Status: Resolved Assessment and Plan: Patient has hx of acute monocular vision loss of the right eye on 11/12/17. 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 -CTA found Mild stenoses of the bilateral subclavian arteries.No significant stenosis identified within the common or internal carotid arteries at that time. -ED course included initiating 80mg prednisone and close follow up with Opthalmo logy. - Time Spent with Patient Total time spent is greater than 50% in coordination of care (as documented) at patient's floor/unit and/or counseling patient: 25 - 35 minutes Plan of Care Discussed with: patient Internal Medicine: Result - Labs CBC & Chem 7: 12/18/18 03:57 03/04/19 03:57 Labs: Short CBC 12/17/18 12/18/18 Range/Units 21:59 03:57 WBC 6.6 6.0 (4.3-11.1) K/mcL Hgb 13.9 12.5 L (12.9-16.9) g/dL Hct 42.2 37.8 (37.5-50.1) % Plt Count 179 155 (140-400) K/mcL Neutrophils # 4.6 4.4 (1.6-8.9) K/mcL BMP 12/17/18 12/18/18 21:59 03:57 Sodium 139 141 Potassium 4.0 4.0 Chloride 106 108 H Carbon Dioxide 25 24 BUN 13 12 Creatinine 1.07 0.88 Glucose 155 H 107 H Calcium 9.3 8.8 Cardiac Enzymes 12/17/18 12/18/18 Range/Units 21:59 03:57 Troponin I < 0.03 < 0.03 (< 0.04) ng/mL Liver Function 12/17/18 12/18/18 Range/Units 21:59 03:57 Total Bilirubin 0.6 0.5 (0.3-1.0) mg/dL Direct Bilirubin 0.1 (0.0-0.2) mg/dL AST 15 12 L (13-39) Units/L ALT 15 12 (7-52) Units/L Alkaline Phosphatase 64 57 (34-104) Units/L Albumin 4.5 3.8 (3.5-5.7) g/dL Urine 12/18/18 Range/Units 07:44 Urine Color Yellow (Yellow) Urine Clarity Clear (Clear) Urine pH 5.5 (5.0-8.0) pH Units Ur Specific [place] 1.017 (1.010-1.025) Urine Protein Negative (Neg-Trace) mg/dL Urine Glucose (UA) Normal (Normal) mg/dL - ABG Interpretation ABG results: PT/INR, D-dimer PT 11.6 Seconds (9.4-12.1) 12/18/18 03:57 - Impressions Impressions Chest X-Ray 12/17/18 21:33 IMPRESSION: No acute cardiopulmonary process. D/ / Jesús Sessions / Jesús Sessions Interpreting Provider: Jesús Sessions Head CT 12/17/18 21:33 IMPRESSION: No acute intracranial abnormality. D/ / Jose Hernandez MD / Jose Hernandez MD Interpreting Provider: Jose Hernandez MD Brain MRI 12/18/18 MPRESSION: Cerebral atrophy. Mild chronic small vessel ischemic changes. No acute brain parenchymal abnormality. ECHO Doppler 12/18/18 IMPRESSION: LVEF 60-65%. Normal LV chamber size, wall thickness and systolic function. Mild left ventricular diastolic dysfunction. Normal right ventricular structure and function. No significant valvular dysfunction. No pulmonary hypertension. Consult Discharge Plan - Plan Referrals: NONE,PCP [Primary Care Provider] - <Silvia Lisa - Last Filed: 12/18/18 19:04> Hospitalist Progress Note - Encounter Date of Encounter: 12/18/18 - Exam Vitals: Temp Pulse Resp BP Pulse Ox 98.4 F 83 16 131/70 93 12/18/18 15:42 12/18/18 15:42 12/18/18 15:42 12/18/18 15:42 12/18/18 15:42 - Assessment and Plan (1) Hypothermia Current Visit: Yes Status: Resolved (2) Alcohol use Current Visit: Yes Status: Acute (3) Near syncope Current Visit: Yes Status: Acute (4) DVT prophylaxis Current Visit: Yes Status: Acute - Time Spent with Patient Total time spent is greater than 50% in coordination of care (as documented) at patient's floor/unit and/or counseling patient: Internal Medicine: Result - Labs CBC & Chem 7: 12/18/18 03:57 12/18/18 03:57 Labs: Short CBC 12/17/18 12/18/18 Range/Units 21:59 03:57 WBC 6.6 6.0 (4.3-11.1) K/mcL Hgb 13.9 12.5 L (12.9-16.9) g/dL Hct 42.2 37.8 (37.5-50.1) % Plt Count 179 155 (140-400) K/mcL Neutrophils # 4.6 4.4 (1.6-8.9) K/mcL BMP 12/17/18 12/18/18 21:59 03:57 Sodium 139 141 Potassium 4.0 4.0 Chloride 106 108 H Carbon Dioxide 25 24 BUN 13 12 Creatinine 1.07 0.88 Glucose 155 H 107 H Calcium 9.3 8.8 Cardiac Enzymes 12/17/18 12/18/18 Range/Units 21:59 03:57 Troponin I < 0.03 < 0.03 (< 0.04) ng/mL Liver Function 12/17/18 12/18/18 Range/Units 21:59 03:57 Total Bilirubin 0.6 0.5 (0.3-1.0) mg/dL Direct Bilirubin 0.1 (0.0-0.2) mg/dL AST 15 12 L (13-39) Units/L ALT 15 12 (7-52) Units/L Alkaline Phosphatase 64 57 (34-104) Units/L Albumin 4.5 3.8 (3.5-5.7) g/dL Urine 12/18/18 Range/Units 07:44 Urine Color Yellow (Yellow) Urine Clarity Clear (Clear) Urine pH 5.5 (5.0-8.0) pH Units Ur Specific [place] 1.017 (1.010-1.025) Urine Protein Negative (Neg-Trace) mg/dL Urine Glucose (UA) Normal (Normal) mg/dL - ABG Interpretation ABG results: PT/INR, D-dimer PT 11.6 Seconds (9.4-12.1) 12/18/18 03:57 - Impressions Impressions Chest X-Ray 12/17/18 21:33 IMPRESSION: No acute cardiopulmonary process. D/ / Jesús Sessions / Jesús Sessions Interpreting Provider: Jesús Sessions Head CT 12/17/18 21:33 IMPRESSION: No acute intracranial abnormality. D/ / Jose Hernandez MD / Jose Hernandez MD Interpreting Provider: Jose Hernandez MD Brain MRI 12/18/18 06:05 IMPRESSION: Cerebral atrophy. Mild chronic small vessel ischemic changes. No acute brain parenchymal abnormality. Mucoperiosteal thickening of the sinuses. D/ / 12/18/2018 09:18:25 Alberta Churchill MD / [email or web address] Interpreting Provider: Alberta Churchill MD Echocardiogram 12/18/18 06:05 Impressions: LVEF 60-65%. Normal LV chamber size, wall thickness and systolic function. Mild left ventricular diastolic dysfunction. Normal right ventricular structure and function. No significant valvular dysfunction. No pulmonary hypertension. Left Ventricular Wall Motion: Rest Echo Findings All wall segments showed normal motion. Findings: Study Quality * Technically adequate exam. ECG Findings * Sinus rhythm, BBB. Left Ventricle * LVEF 60-65%. * Normal LV chamber size, wall thickness and systolic function. * Mild left ventricular diastolic dysfunction. Right Ventricle * Normal right ventricular structure and function. Left Atrium * Normal left atrial size. Right Atrium * Normal right atrial size. Interatrial Septum * Interatrial septum not well evaluated. * No evidence of PFO by color Doppler. Aortic Valve * Trileaflet aortic valve with normal function. * No aortic stenosis. * No aortic regurgitation. Mitral Valve * Normal mitral valve structure. * No mitral stenosis. * Trace mitral regurgitation. Tricuspid Valve * Normal tricuspid valve structure. * No tricuspid stenosis. * Trace tricuspid regurgitation. * Estimated RVSP is 21 mmHg. * Estimated RA pressure is 3 mmHg. * No pulmonary hypertension. Pulmonic Valve * Pulmonic valve is not well visualized. * No pulmonic stenosis. * Trace pulmonic regurgitation. Aorta * Normally sized aortic root. Pericardium * The pericardium appears normal. IVC * The IVC is not dilated. * > 50% respiratory change - Attending Attestation I examined this patient and my medical decision-making was reviewed with the Resident Physician. I agree with the documented findings, disposition and tr eatment plan as described except to the extent set forth below. Patient presented for syncopal episode. He stated that he passed out, though based on chart review, he told others he just felt dizzy. He had urinary incontinence and was hypothermic. Patient was intoxicated with alcohol and also marijuana positive. at bedside states the patient and brother in law smoke frequently when they are together. Patient takes baclofen, gabapentin. 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 Patient currently no acute issues. Neurology consulted, in the case this could be seizure. Will avoid abruptly holding gabapentin to prevent withdrawal. <Dusty Jorge - Last Filed: 12/18/18 15:04> (2) Hypothermia Qualifiers: Encounter type: initial encounter Qualified Code(s): T68.XXXA - Hypothermia, initial encounter <Silvia Lisa - Last Filed: 12/18/18 19:04> (1) Hypothermia Qualifiers: Encounter type: initial encounter Qualified Code(s): T68.XXXA - Hypothermia, initial encounter
[2018-12-18] MEDS ORDERED: Gabapentin 400 MG CAPSULE PO SCH ×2 (09:00→21:00)
[2018-12-18] MEDS ORDERED: Vitamin B Complex/Vit C/Vit E 1 EACH TABLET PO SCH (09:00)
[2018-12-18] MEDS ORDERED: Melatonin 3 MG TABLET PO PRN (18:20)
--- NOTE | 2018-12-18 18:39 | Neurology - Consult Note ---
<Phillip Moore J - Last Filed: 12/18/18 18:35> Date of Encounter: 12/18/18 Time of Encounter: 18:35 Assessment and Plan (1) Alcohol use Current Visit: Yes Status: Acute (2) Near syncope Current Visit: Yes Status: Acute neuro consulted d/t unresponsive episode patient was drinking with spouse and family last evening. Had an episode of incoherence, weakness, and vomited. He mentions some "b/l arm shaking" during this event. Denies any post ictal sx Not likely epilleptic seizures; consider symptomatic seizure or convulsive syncope No focal neuro deficits on exam today. Back to baseline status. Low suspicion for seizure; most likely convulsive syncope Events most likely 2/2 alcohol intoxication; was also using marijuana. ETOH on admission 159 CT head negative for acute abnormality. EKG NSR with RBBB no ischemic changes. History of Present Illness Chief complaint: near syncope HPI: Mr. Howard is a 73 year old male with a PMH of HLD, HTN, chronic back pain who presented to [facility] ED d/t near syncope. Was drinking and smoking marijuana last night. He had a sudden episode of decreased level of consciousness and incoherence with his reporting that he turned pritchett in color and his eyes ro lled back in his head and subsequently vomited. Patient denies any aura prior near syncopal event. Denies any chest pain, palpitations, tachycardia or diaphoresis. He does admits to some BUE "shaking". In all the episode last approximately 1 minute duration without any post ictal state. Denies any h/o seizures. He was hypothermic on arrival and was place on a bare hugger and his temp improved to 97.5 and he has been fine since. CT head was negative for an acute process. EKG NRS with RBBB, and echo, and carotid studies were normal. ETOH was elevated at 159 and he was positive for marijuana. No focal neuro deficits on exam this evening. He is anxious for discharge and back to baseline status. 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, prostate, cataract surgery LEFT eye - Social History Smoking Status: Never smoker Smokeless Tobacco Status: No Alcohol use: heavy Drug use: marijuana Medications and Allergies Baclofen [Lioresal] 10 mg PO BID 08/17/16 [History] Ciclopirox Olamine [Ciclopirox] 1 appl TP BID PRN 08/17/16 [History] Desonide [Desowen] 1 appl TP BID PRN 08/17/16 [History] Gabapentin [Neurontin] 800 mg PO BID 08/17/16 [History] Losartan Potassium [Cozaar] 50 mg PO DAILY 08/17/16 [History] Meloxicam 15 mg PO DAILY 08/17/16 [History] Pantoprazole Sodium [Protonix] 40 mg PO DAILY 08/17/16 [History] Simvastatin [Zocor] 40 mg PO HS 08/17/16 [History] Cyanocobalamin (B-12) [Vitamin B12] 1,000 mcg IM QMONTH 12/18/18 [History] Tamsulosin HCl [Flomax] 0.4 mg PO DAILY 12/18/18 [History] Allergy/AdvReac Type Severity Reaction Status Date / Time No Known Allergies Allergy Verified 11/12/17 19:59 All Systems: The remainder of the systems were reviewed and are negative Review of Systems: REVIEW OF SYSTEMS GENERAL: positive for vomiting, weakness, NEUROLOGIC: Negative for any visual changes, facial asymmetry, dysphagia, dysarthria, hemiparesis, hemisensory deficits, vertigo, ataxia, seizures positive for loss of consciousness, BUE "shaking" temporarily incoherent, and lethargy all lasting approximately 1 min in duration CARDIAC: Negative for any chest pain, palpitations, tachycardia GI: N/V x 1 event Physical Examination - Vital Signs Vital Signs: Initial Vital Signs Temp Pulse Resp BP Pulse Ox 94.5 F L 60 15 121/68 100 12/17/18 21:02 12/17/18 21:02 12/17/18 21:02 12/17/18 21:02 12/17/18 21:02 - Exam Exam: Examination: General Examination: *CONSTITUTIONAL: no acute distress *GENERAL APPEARANCE OF PATIENT appears generally healthy and well groomed *EYES: pupils equal, round, reactive to light and accommodation, conjunctiva clear Musculoskeletal: *GAIT AND STATION not assessed *ASSESSMENT OF MUSCLE STRENGTH IN THE UPPER AND LOWER EXTREMITIES bilateral deltoid, bicep, tricep, hand former helper strength, hip flexors ,anterior tibialis, dorsoflexion of the foot 5/5 *MUSCLE TONE IN THE UPPER AND LOWER EXTREMITIES normal. No abnormal movements, fasciculations or atrophy identified. Neurological: *ORIENTATION to time and place *RECURRENT AND REMOTE MEMORY intact *ATTENTION AND CONCENTRATION are normal *LANGUAGE FUNCTION no significant aphasia or dysarthia was noted. *FUND OF KNOWLEDGE aware of current events, past history, vocabulary *MENTAL attention span and concentration normal. *CN II optic fundi were normal, no papilledema noted. *CN III,IV, PERRLA extraocular eye movements were full, no nystagmus and no ptosis noted. *CN V shows normal sensation and jaw opens symmetrically. *CN VII shows normal facial movement symmetrically, upper and lower bilaterally. *CN VIII shows no significant hearing loss on exam *CN IX,,X palate elevated symmetrically *CN XI normal strength in the sternocleidomastoid muscles, symmetrical shoulder shrugging. *CN XII tongue protruded in the midline, with normal strength and movement. *SENSORY EXAMINATION light touch intact *REFLEXES: deep tendon reflexes upper 2/4 b/l, lower 1/4 b/l , no pa thological reflexes were noted. *CEREBELLAR TESTING normal finger to nose *PAIN LEVEL 0 Results - Laboratory Findings CBC and BMP: 12/18/18 03:57 12/18/18 03:57 Abnormal lab findings: Abnormal lab results Hgb 12.5 g/dL (12.9-16.9) L 12/18/18 03:57 APTT 24.8 Seconds (26.0-36.0) L 12/18/18 03:57 Chloride 108 mEq/L (98-107) H 12/18/18 03:57 Glucose 107 mg/dL (70-105) H 12/18/18 03:57 AST 12 Units/L (13-39) L 12/18/18 03:57 Serum Total Protein 6.0 g/dL (6.4-8.9) L 12/18/18 03:57 Globulin 2.2 g/dL (2.4-3.5) L 12/18/18 03:57 Salicylates < 2.5 mg/dL (15.0-30.0) L 12/17/18 21:59 Acetaminophen < 10 mcg/mL (10-20) L 12/17/18 21:59 U Marijuana (THC) Screen Positive ng/mL (Cutoff = 50) H 12/18/18 07:49 Ethyl Alcohol 153 mg/dL (Less than 10) H 12/17/18 21:59 - Diagnostic Findings Additional findings: CT/CT head/brain wo con IMPRESSION: No acute intracranial abnormality. MR/MR head/brain wo con IMPRESSION: Cerebral atrophy. Mild chronic small vessel ischemic changes. No acute brain parenchymal abnormality. Mucoperiosteal thickening of the sinuses. EV/EV echocardiogram Impressions: LVEF 60-65%. Normal LV chamber size, wall thickness and systolic function. Mild left ventricular diastolic dysfunction. Normal right ventricular structure and function. No significant valvular dysfunction. No pulmonary hypertension. Impressions: Findings: Bilateral carotid systems have nonstenotic plaque. Consult Discharge Plan - Plan Referrals: NONE,PCP [Primary Care Provider] - <Tab Goncalves - Last Filed: 12/18/18 19:13> Date of Encounter: 12/18/18 Assessment and Plan (1) Alcohol use Current Visit: Yes Status: Acute (2) Near syncope Current Visit: Yes Status: Acute I agree with the assessment and plan of the CASH MANAGEMENT SPECIALIST as outlined above. Eye movements are likely dealing with alcohol intoxication along with hypoglycemia. I do not feel that this was at all mediated by a primary neurologic event. He is currently back to his normal baseline. Other testing is necessary. He may discharge him at your discretion. History of Present Illness HPI: Mr. Howard is a 73 year old male who is seen for neurologic consultation at the request of the internal medicine group. Patient was seen for a [id number] complete neurologic assessment which includes neurologic examination as well as history. I agree with the documentation as stated above by the CASH MANAGEMENT SPECIALIST. All Systems: The remainder of the systems were reviewed and are negative Review of Systems: The balance of the systems review is negative. Physical Examination - Vital Signs Vital Signs: Initial Vital Signs Temp Pulse Resp BP Pulse Ox 94.5 F L 60 15 121/68 100 12/17/18 21:02 12/17/18 21:02 12/17/18 21:02 12/17/18 21:02 12/17/18 21:02 - Exam Exam: I did perform a complete [id number] independent neurologic assessment and examination. I agree with the examination completely as documented above. Results - Laboratory Findings CBC and BMP: 12/18/18 03:57 12/18/18 03:57 Abnormal lab findings: Abnormal lab results Hgb 12.5 g/dL (12.9-16.9) L 12/18/18 03:57 APTT 24.8 Seconds (26.0-36.0) L 12/18/18 03:57 Chloride 108 mEq/L (98-107) H 12/18/18 03:57 Glucose 107 mg/dL (70-105) H 12/18/18 03:57 AST 12 Units/L (13-39) L 12/18/18 03:57 Serum Total Protein 6.0 g/dL (6.4-8.9) L 12/18/18 03:57 Globulin 2.2 g/dL (2.4-3.5) L 12/18/18 03:57 Salicylates < 2.5 mg/dL (15.0-30.0) L 12/17/18 21:59 Acetaminophen < 10 mcg/mL (10-20) L 12/17/18 21:59 U Marijuana (THC) Screen Positive ng/mL (Cutoff = 50) H 12/18/18 07:49 Ethyl Alcohol 153 mg/dL (Less than 10) H 12/17/18 21:59
[2018-12-19] MEDS: *HR* Heparin 5,000 UNIT/ML VIAL SQ SCH (05:05)
--- NOTE | 2018-12-19 07:22 | Discharge Summary ---
- NOTES TO OUTPATIENT PROVIDER Notes to Outpatient Provider: Patient was educated against alcohol and marijuana given he is on [employer] depressant medications. Orders not resulted at time of discharge: Pending orders 12/17/18 22:09 Culture,Blood [BC] Stat Date of Encounter: 12/19/18 Time of Encounter: 07:19 - Discharge Diagnosis (1) Syncope Priority: Primary Status: Acute Qualifiers: Syncope type: unspecified Qualified Code(s): R55 - Syncope and collapse (2) Hypothermia Priority: Secondary Status: Resolved Qualifiers: Encounter type: initial encounter Qualified Code(s): T68.XXXA - Hypo thermia, initial encounter (3) Alcohol use Priority: Secondary Status: Acute (4) DVT prophylaxis Priority: Secondary Status: Acute Hospital course: Mr. Howard is a 73 year old male with a past medical history of hypertension, chronic back pain and GERD on baclofen and gabapentin who presented to the ED after a syncopal episode witnessed by the patient's . Patient reportedly had a few drinks and also had some marijuana exposure (possibly smoking marijuana at this time) was sitting in his living with his and brother. Patient passed out, he lost, he did lose bladder control, and he then vomited. No reports of any postictal confusion. Patient denied any presyncopal symptoms of diaphoresis, nausea, palpitations, chest pain or shortness of breath. No reports of focal deficits. On arrival patient was noted to be hypothermic with a temperature of 94.5. He was placed on a bear hugger with improvement and 97.5. Review of his vitals were otherwise stable. Laboratory workup was relatively unremarkable. Chest x-ray and head CT were also unremarkable. EKG showed sinus rhythm with a right bundle branch block and no ischemic changes. Patient received 1 L of fluids in the ED. Patient returned back to baseline. He had echocardiogram and carotid ultrasounds which were unremarkable. Neurology evaluated patient and based on findings, this was less likely seizures. This is suggestive of ETOH and marijuana use with taking baclofen and gabapentin as home medications. patient had no further hypothermic episodes or any syncopal episodes during monitoring. He was discharged home in stable condition. We had education that patient should avoid alcohol and marijuana completely given his home medications. - Time Spent with Patient Total time spent providing and/or coordinating discharge services: - Discharge Medications Prescriptions: New Vitamin B Complex/Vit C/Vit E [Stresstab] 1 each PO DAILY tablet Continue Baclofen [Lioresal] 10 mg PO BID Simvastatin [Zocor] 40 mg PO HS Losartan Potassium [Cozaar] 50 mg PO DAILY Pantoprazole Sodium [Protonix] 40 mg PO DAILY Meloxicam 15 mg PO DAILY Gabapentin [Neurontin] 800 mg PO BID Desonide [Desowen] 1 appl TP BID PRN PRN Reason: Rash Ciclopirox Olamine [Ciclopirox] 1 appl TP BID PRN PRN Reason: Rash Cyanocobalamin (B-12) [Vitamin B12] 1,000 mcg IM QMONTH Tamsulosin HCl [Flomax] 0.4 mg PO DAILY Home Medications: Baclofen [Lioresal] 10 mg PO BID 08/17/16 [History] Ciclopirox Olamine [Ciclopirox] 1 appl TP BID PRN 08/17/16 [History] Desonide [Desowen] 1 appl TP BID PRN 08/17/16 [History] Gabapentin [Neurontin] 800 mg PO BID 08/17/16 [History] Losartan Potassium [Cozaar] 50 mg PO DAILY 08/17/16 [History] Meloxicam 15 mg PO DAILY 08/17/16 [History] Pantoprazole Sodium [Protonix] 40 mg PO DAILY 08/17/16 [History] Simvastatin [Zocor] 40 mg PO HS 08/17/16 [History] Cyanocobalamin (B-12) [Vitamin B12] 1,000 mcg IM QMONTH 12/18/18 [History] Tamsulosin HCl [Flomax] 0.4 mg PO DAILY 12/18/18 [History] Vitamin B Complex/Vit C/Vit E [Stresstab] 1 each PO DAILY tablet 12/19/18 [Rx] Allergies/Adverse Reactions: Allergy/AdvReac Type Severity Reaction Status Date / Time No Known Allergies Allergy Verified 11/12/17 19:59 Date of admission: 12/18/18 00:51 Primary care physician: PCP NONE Consults: 12/18/18 14:50 Consult to Neurology [CONS] Routine Consulting Provider: [facility] Reason for Consult: unresponsive episode. Call Completed: Yes Discharging clinician: Silvia Lisa - Constitutional Vitals: Temp Pulse Resp BP Pulse Ox 97.8 F 65 16 128/79 95 12/19/18 05:06 12/19/18 05:06 12/19/18 05:06 12/19/18 05:06 12/19/18 05:06 General appearance: Present: A&O X 3, no acute distress, answers questions appropriately Exam: . - Head Head exam: Present: atraumatic, normocephalic - Eye Eye exam: Present: PERRL, conjuntiva pink, sclera anicteric Pupils: Present: PERRL - Neck Neck exam general surgery: Present: supple, trachea midline. Absent: lymphadenopathy - Respiratory Respiratory exam: Present: CTAB. Absent: accessory muscle use, rales, rhonchi, wheezes - Cardiovascular Cardiovascular exam: Present: RRR, +S1, +S2. Absent: diastolic murmur, gallop, rubs, systolic murmur - GI/Abdominal GI/Abdominal exam: Present: normal bowel sounds, soft, no peritoneal signs. Absent: distended, tenderness - Extremities Exam Extremities exam: Present: warm, radial pulses palpable and symmetrical. Absent: calf tenderness, cyanotic, pedal edema - Neurological Exam Neurological exam: Present: alert, CN II-XII intact, normal gait, oriented X3, reflexes normal, no focal deficits, strengths equal and symetr throughout. Absent: abnormal gait, motor sensory deficit, pronater drift, facial droop, speech deficit - Skin Skin exam: Present: dry, intact - Patient Status Disposition: Home, Self-Care Condition: Fair Functional capacity at discharge: independent ambulation Overall status at discharge: patient is back to baseline - Discharge Instructions Follow Up With: NONE,PCP [Primary Care Provider] - - Diet and Activity Activity: resume usual activities as tolerated Diet: advance to your usual diet
[2018-12-19 07:55] VITALS: BP 161/89
--- NOTE | 2018-12-19 09:27 | Neurology Progress Note ---
<Phillip Moore J - Last Filed: 12/19/18 09:24> Date of Encounter: 12/19/18 Time of Encounter: 09:24 Assessment and Plan (1) Alcohol use Status: Acute (2) Near syncope Status: Deleted Neuro consulted due to unresponsive episode. Patient was intoxicated with alcohol; EtOH on admission 159. In addition he was smoking marijuana and possibly taking muscle relaxers. His reports that sometime throughout the course of the evening he had an episode of unresponsiveness, and coherence and weakness and subsequently vomited. Immediately after the episode of emesis the patient was back to baseline status but was brought to [place] ED for further evaluation. Denied any postictal symptoms but did report some bilateral upper extremity "shaking" activity with a decreased LOC lasting approximately 1 minute. I Do not suspect that the convulsive activity he described was an epileptic seizure; consider symptomatic seizure but this is also less likely. Most likely convulsive syncope. Addition to being intoxicated he was also found to have be hypoglycemic and believe that this could explain his symptoms. He is back to normal baseline without any recurrent events overnight. Workup including CT of the head was negative for acute abnormality, brain MRI showing cervical atrophy, mild chronic small vessel ischemic changes. No acute brain parenchymal abnormality. Carotid duplex studies revealing bilateral nonstenotic plaque. Echocardiogram grossly normal. Clinically, the patient appears to be back to the baseline status this morning. His neuro exam is nonfocal. May discharge at the discretion of the primary care team. Do not feel at this juncture that additional testing is necessary. Subjective Principal diagnosis: Unresponsive episode Interval history: Patient seen and examined at bedside today. No acute change in condition overnight. He reports that he is back to baseline status. His spouse is at bedside and also confirms that he has not had any repeat episodes of unresponsiveness. 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 No abnormal movements, fasciculations or atrophy identified. Neurological: *ORIENTATION to time and place *RECURRENT AND REMOTE MEMORY intact *ATTENTION AND CONCENTRATION are normal *LANGUAGE FUNCTION no significant aphasia or dysarthia was noted. *FUND OF KNOWLEDGE aware of current events, past history, vocabulary *MENTAL attention span and concentration normal. *CN II optic fundi were normal, no papilledema noted. *CN III,IV, PERRLA extraocular eye movements were full, no nystagmus and no ptosis noted. *CN V shows normal sensation and jaw opens symmetrically. *CN VII shows normal facial movement symmetrically, upper and lower bilaterally. *CN VIII shows no significant hearing loss on exam *CN IX,,X palate elevated symmetrically *CN XI normal strength in the sternocleidomastoid muscles, symmetrical shoulder shrugging. *CN XII tongue protruded in the midline, with normal strength and movement. *SENSORY EXAMINATION light touch intact *REFLEXES: deep tendon reflexes; BUE 2/4, BLE 1/4, no pathological reflexes were noted. *CEREBELLAR TESTING normal finger to nose *PAIN LEVEL 0 Results - Laboratory Findings CBC and BMP: 12/18/18 03:57 12/18/18 03:57 Abnormal lab findings: Abnormal lab results Hgb 12.5 g/dL (12.9-16.9) L 12/18/18 03:57 APTT 24.8 Seconds (26.0-36.0) L 12/18/18 03:57 Chloride 108 mEq/L (98-107) H 12/18/18 03:57 Glucose 107 mg/dL (70-105) H 12/18/18 03:57 POC Glucose 112 mg/dL (70-99) H 12/18/18 11:22 AST 12 Units/L (13-39) L 12/18/18 03:57 Serum Total Protein 6.0 g/dL (6.4-8.9) L 12/18/18 03:57 Globulin 2.2 g/dL (2.4-3.5) L 12/18/18 03:57 Salicylates < 2.5 mg/dL (15.0-30.0) L 12/17/18 21:59 Acetaminophen < 10 mcg/mL (10-20) L 12/17/18 21:59 U Marijuana (THC) Screen Positive ng/mL (Cutoff = 50) H 12/18/18 07:49 Ethyl Alcohol 153 mg/dL (Less than 10) H 12/17/18 21:59 Consult Discharge Plan - Plan Referrals: Pat Ramírez MD [Non-Partnered Physician] - 12/22/18 1:00 pm <Tab Goncalves - Last Filed: 12/20/18 07:48> Date of Encounter: 12/19/18 Assessment and Plan (1) Alcohol use Status: Acute (2) Near syncope Status: Deleted I did complete an independent cuxm-vl-fare neurologic examination and clinical assessment of this patient today. I agree with the documentation and plan of the FINISH REPAIRER as stated above. Subjective Interval history: Chart was reviewed, the patient was seen in [id number] neurologic assessment including examination was performed. He is back to his normal baseline status. He has not had any further episodes of altered consciousness. Objective - Constitutional Vitals: Temp Pulse Resp BP Pulse Ox 98.4 F 56 16 161/89 95 12/19/18 07:51 12/19/18 07:51 12/19/18 07:51 12/19/18 07:51 12/19/18 07:51 Exam: I did perform an independent [id number] neurologic examination. I agree with the documentation of the FINISH REPAIRER as stated above. Results - Laboratory Findings CBC and BMP: 12/18/18 03:57 12/18/18 03:57 Abnormal lab findings: Abnormal lab results Hgb 12.5 g/dL (12.9-16.9) L 12/18/18 03:57 APTT 24.8 Seconds (26.0-36.0) L 12/18/18 03:57 Chloride 108 mEq/L (98-107) H 12/18/18 03:57 Glucose 107 mg/dL (70-105) H 12/18/18 03:57 POC Glucose 112 mg/dL (70-99) H 12/18/18 11:22 AST 12 Units/L (13-39) L 12/18/18 03:57 Serum Total Protein 6.0 g/dL (6.4-8.9) L 12/18/18 03:57 Globulin 2.2 g/dL (2.4-3.5) L 12/18/18 03:57 Salicylates < 2.5 mg/dL (15.0-30.0) L 12/17/18 21:59 Acetaminophen < 10 mcg/mL (10-20) L 12/17/18 21:59 U Marijuana (THC) Screen Positive ng/mL (Cutoff = 50) H 12/18/18 07:49 Ethyl Alcohol 153 mg/dL (Less than 10) H 12/17/18 21:59
--- NOTE | 2018-12-19 21:55 | Electrocardiograph Report ---
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
--- NOTE | 2018-12-19 21:55 | Electrocardiograph Report ---
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
== END 2018-12-19 10:52 | disposition home or self-care (01) ==
LOC: 3ANU 20:57 → EMEROOARM 20:57 → SUATTDRO 12-18 00:51 → 3ANU 12-18 01:23
PROVIDERS: ADMIT Internal Medicine; ATTEND Student in an Organized Health Care Education/Training Program

== ENCOUNTER 2020-08-01 15:25 | Observation (INO) ==
[2020-08-01 16:16] LABS: Prothrombin Time 11.6 Seconds (9.4-12.1)
[2020-08-01 16:19] LABS: Activated Partial Thrombo Time 25.8 Seconds (26.0-36.0)
[2020-08-01 16:34] LABS: Alanine Aminotransferase 18 Units/L (7-52); Albumin 4.2 g/dL (3.5-5.7); Albumin/Globulin Ratio 1.6 (1.1-2.2); Alkaline Phosphatase 56 Units/L (34-104); Aspartate Amino Transferase 17 Units/L (13-39); BUN/Creatinine Ratio 13 (6-26); Bilirubin,Direct 0.1 mg/dL (0.0-0.2); Bilirubin,Indirect 0.7 mg/dL (0.0-1.0); Bilirubin,Total 0.8 mg/dL (0.3-1.0); Blood Urea Nitrogen 14 mg/dL (8-23); Calcium 9.3 mg/dL (8.6-10.3); Carbon Dioxide 27 mEq/L (23-29); Chloride 107 mEq/L (98-107); Ethanol < 10 mg/dL (Less than 10); Globulin 2.7 g/dL (2.4-3.5); Glucose 100 mg/dL (70-105); Osmolality,Calculated 293 (280-300); Potassium 3.5 mEq/L (3.5-5.1); Sodium 141 mEq/L (136-145); Total Protein 6.9 g/dL (6.4-8.9); Troponin I < 0.03 ng/mL (< 0.04); eGFR For African Americans > 60 (> 60); eGFR For Non-African Americans > 60 (> 60)
[2020-08-01 16:39] LABS: Basophils # 0.1 K/mcL (0.0-0.2); Basophils % 0.8 %; Eosinophils # 0.5 K/mcL (0.0-0.6); Eosinophils % 7.8 %; Hematocrit 42.9 % (37.5-50.1); Hemoglobin 13.8 g/dL (12.9-16.9); Immature Granulocytes % 0.3 % (0-4); Lymphocytes # 1.8 K/mcL (0.6-4.6); Lymphocytes % 30.5 %; Mean Corpuscular HGB Conc 32.2 g/dL (31.6-35.5); Mean Corpuscular Hemoglobin 29.9 pg (28.0-33.3); Mean Corpuscular Volume 92.9 fL (83.0-100.0); Mean Platelet Volume 10.5 fL (9.4-12.4); Monocytes # 0.6 K/mcL (0.0-1.3); Monocytes % 9.2 %; Neutrophils # 3.1 K/mcL (1.6-8.9); Platelet Count 177 K/mcL (140-400); Red Blood Count 4.62 M/mcL (4.19-5.50); Red Cell Distribution Width 12.9 % (11.5-14.5); Segmented Neutrophils % 51.4 %
[2020-08-01 17:20] LABS: Bilirubin,Urine Negative (Negative); Blood,Urine Negative (Negative); Clarity,Urine Clear (Clear); Color,Urine Colorless (Yellow); Glucose,Urine (UA) Normal (Normal); Ketones,Urine Negative (Negative); Leukocyte Esterase,Urine Negative (Negative); Nitrite,Urine Negative (Negative); PH,Urine 5.5 pH Units (5.0-8.0); Protein,Urine Negative (Neg-Trace); Specific Gravity,Urine 1.015 (1.010-1.025); Urobilinogen,Urine Normal (Normal)
[2020-08-01 17:25] LABS: Amphetamine Screen,Urine Negative ng/mL (Cutoff=1000); Barbiturate Screen,Urine Negative ng/mL (Cutoff=200); Benzodiazepines Screen,Urine Negative ng/mL (Cutoff=200); Cannabinoid Screen,Urine Negative ng/mL (Cutoff = 50); Cocaine Screen,Urine Negative ng/mL (Cutoff= 300); Opiate Screen,Urine Negative ng/mL (Cutoff=300); Phencyclidine Screen,Urine Negative ng/mL (Cutoff=25)
[2020-08-01] MEDS ORDERED: Naloxone 0.4 MG/ML INJ IVP PRN (18:21)
[2020-08-01] MEDS ORDERED: *HR* HYDROcodone/Acet 5/325 mg TABLET PO PRN (18:21)
[2020-08-01] MEDS ORDERED: Aspirin 325 MG TABLET PO ONE (18:21)
[2020-08-02] MEDS ORDERED: *HR* LORazepam 2 MG/ML VIAL IVP PRN ×3 (00:35)
[2020-08-02] MEDS ORDERED: Perflutren Lipid Microsphere 1.3 ML in 0.9 % Sodium Chloride 8.7 ML IVP PRN (01:35)
[2020-08-02] MEDS ORDERED: *HR* Enoxaparin 40 MG/0.4 ML SYRINGE SQ SCH (06:00)
[2020-08-02] MEDS ORDERED: *HR* Heparin 5,000 UNIT/ML VIAL SQ SCH (06:00)
[2020-08-02 06:12] LABS: Chol/HDL Ratio 4.7 (0-4.9)
[2020-08-02 06:16] LABS: BUN/Creatinine Ratio 11 (6-26); Blood Urea Nitrogen 13 mg/dL (8-23); Calcium 9.3 mg/dL (8.6-10.3); Carbon Dioxide 27 mEq/L (23-29); Chloride 106 mEq/L (98-107); Cholesterol 239 mg/dL (< 200); Glucose 109 mg/dL (70-105); HDL Cholesterol 48 mg/dL (40-59); LDL Cholesterol,Calculated 122 mg/dL (< 100); Magnesium 1.8 mg/dL (1.6-2.6); Osmolality,Calculated 293 (280-300); Phosphorous 3.4 mg/dL (2.7-4.5); Potassium 4.2 mEq/L (3.5-5.1); Sodium 141 mEq/L (136-145); Triglycerides 343 mg/dL (< 150); eGFR For African Americans > 60 (> 60); eGFR For Non-African Americans > 60 (> 60)
[2020-08-02 07:38] LABS: Basophils # 0.1 K/mcL (0.0-0.2); Eosinophils # 0.4 K/mcL (0.0-0.6); Eosinophils % 6.5 %; Hematocrit 43.3 % (37.5-50.1); Hemoglobin 13.8 g/dL (12.9-16.9); Immature Granulocytes % 0.2 % (0-4); Lymphocytes # 1.7 K/mcL (0.6-4.6); Lymphocytes % 28.3 %; Mean Corpuscular HGB Conc 31.9 g/dL (31.6-35.5); Mean Corpuscular Hemoglobin 29.7 pg (28.0-33.3); Mean Corpuscular Volume 93.1 fL (83.0-100.0); Mean Platelet Volume 10.9 fL (9.4-12.4); Monocytes # 0.5 K/mcL (0.0-1.3); Monocytes % 8.3 %; Neutrophils # 3.4 K/mcL (1.6-8.9); Platelet Count 202 K/mcL (140-400); Red Blood Count 4.65 M/mcL (4.19-5.50); Red Cell Distribution Width 12.9 % (11.5-14.5); Segmented Neutrophils % 55.7 %; White Blood Count 6.1 K/mcL (4.3-11.1)
[2020-08-02] MEDS ORDERED: Aspirin Enteric Coated 81 MG Tablet PO SCH ×2 (09:00)
[2020-08-02] MEDS ORDERED: Vitamin B Complex/Vit C/Vit E 1 EACH TABLET PO SCH (09:00)
[2020-08-02 09:21] LABS: Estimated Average Glucose 128 mg/dl
[2020-08-02] MEDS ORDERED: Cyanocobalamin (B-12) 1,000 MCG/ML VIAL IM SCH (09:45)
[2020-08-02 11:12] VITALS: BP 151/75
[2020-08-02] MEDS ORDERED: Baclofen 10 MG TABLET PO SCH (21:00)
== END 2020-08-02 12:12 | disposition home or self-care (01) ==
LOC: EMEROOARM 15:25 → 3BNU 15:25
PROVIDERS: ADMIT Internal Medicine; ATTEND Internal Medicine